=== PATIENT | male | born 1975 ===

== ENCOUNTER 2022-01-25 03:55 | Emergency (ER) | payer SELFPAY ==
[~2022-01-25] VITALS: Ht 170.2 cm; Wt 138.0 kg
[2022-01-25] MEDS ORDERED: SODIUM CHLORIDE 0.9% 1,000 ML IV ONE (04:15)
[2022-01-25 04:26] LABS: BASOPHILS % 0.6 % (0.0-2.0); EOSINOPHILS % 1.8 % (0.0-5.0); HEMATOCRIT. 46.5 % (42.0-52.0); HEMOGLOBIN. 15.6 g/dL (14.0-18.0); LYMPHOCYTES % 44.2 % (20.0-50.0); MEAN CORPUSCULAR HEMOGLOBIN 31.4 pg (28.0-32.0); MEAN CORPUSCULAR VOLUME 93.4 fL (80.0-94.0); MEAN PLATELET VOLUME 8.5 fl (7.4-10.4); MONOCYTES % 7.5 % (2.0-8.0); NEUTROPHILS % 45.9 % (40.0-76.0); PLATELET 217 x1000/uL (130-400); RED BLOOD CELL COUNT 4.97 mill/uL (4.7-6.1); RED CELL DISTRIBUTION WIDTH 13.8 % (11.6-14.6)
[2022-01-25 04:39] LABS: CHLORIDE 105 mEq/L (98-107)
[2022-01-25] MEDS ORDERED: ONDANSETRON HCL 4MG/2ML INJ IM ONE (04:45)
[2022-01-25 04:48] LABS: ETHANOL BLOOD 59 mg/dL
[2022-01-25 07:30] VITALS: BP 95/54
== END 2022-01-25 09:40 | disposition left against medical advice (07) ==
LOC: ER 03:55
DX: F10.10 Alcohol abuse, uncomplicated (principal); Y90.2 Blood alcohol level of 40-59 mg/100 ml; I46.9 Cardiac arrest, cause unspecified
CPT/HCPCS: 36415; 80053; 80307; 80320; 80329; 85025; 93005; 96360; 99284; J2405; J7030; G0480